=== PATIENT | male | born 1975 | race Hispanic/Latino ===

== ENCOUNTER 2024-03-03 12:05 | Emergency (ER) | payer OTHER ==
[~2024-03-03] VITALS: Ht 167.6 cm; Wt 74.8 kg
[2024-03-03 15:25] LABS: BASOPHILS # (AUTO) 0.03 K/uL (0.00-0.20); BASOPHILS % (AUTO) 0.4 % (0.0-5.0); EOSINOPHILS % (AUTO) 1.2 % (0.0-8.0); HEMATOCRIT 52.1 % (42-54); IMMATURE GRANULOCYTE ABSOLUTE 0.02 K/uL (0-1); LYMPHOCYTES # (AUTO) 2.4 K/uL (1.0-4.8); LYMPHOCYTES % (AUTO) 28.9 % (21.0-51.0); MEAN CORPUSCULAR HEMOGLOBIN 31.8 pg (27.0-33.0); MEAN CORPUSCULAR HGB CONC 34.9 g/dL (32.0-36.0); MEAN CORPUSCULAR VOLUME 91.1 fL (79-99); MONOCYTES # (AUTO) 0.7 K/uL (0.1-1.0); MONOCYTES % (AUTO) 7.7 % (3.0-13.0); NEUTROPHILS # (AUTO) 5.2 K/uL (1.8-7.7); NEUTROPHILS % (AUTO) 61.6 % (40.0-77.0); PLATELET COUNT (AUTO) 188 K/uL (130-400); RED BLOOD CELL COUNT(AUTO) 5.72 MIL/uL (4.50-6.20); RED CELL DISTRIBUTION WIDTH 11.6 % (11.0-15.5); WHITE BLOOD COUNT (AUTO) 8.4 K/uL (4.8-10.8)
--- NOTE | 2024-03-03 15:30 | NUR ---
LATE ENTRY RECEIVED REPORT FROM JESSICA AT [id number]
[2024-03-03 15:38] LABS: CARBON DIOXIDE 27 mmol/L (21-32); CHLORIDE 102 mmol/L (101-111); GLOMERULAR FILTR. RATE CALC 93 mL/min (>90); GLUCOSE,RANDOM 168 mg/dL (70-105); POTASSIUM 3.8 mmol/L (3.5-5.1); SODIUM SERUM 137 mmol/L (136-145); UREA NITROGEN, BLOOD 7 mg/dL (7-18)
[2024-03-03 15:43] LABS: ALCOHOL, BLOOD 4 mg/dL (0-10); CREATINE KINASE, TOTAL 69 U/L (21-232)
[2024-03-03 15:44] LABS: ACETAMINOPHEN < 1 mcg/mL (10-29); SALICYLATE < 2.8 mg/dL (2.8-20.0)
[2024-03-03 16:50] LABS: AMPHET/METH SCREEN,URINE NEGATIVE (NEGATIVE); BARBITURATE SCREEN, URINE NEGATIVE (NEGATIVE); BENZODIAZEPINES SCREEN,URINE NEGATIVE (NEGATIVE); CANNABINOID SCREEN,URINE NEGATIVE (NEGATIVE); COCAINE SCREEN,URINE NEGATIVE (NEGATIVE); OPIATE SCREEN,URINE NEGATIVE (NEGATIVE); PHENCYCLIDINE SCREEN,URINE NEGATIVE (NEGATIVE)
--- NOTE | 2024-03-03 17:22 | NUR ---
PT MEDICALLY CLEARED AND CALLED [facility] FOR PSYCHE EVALUATION, THEY WILL NOTIFY AND DISPATCH PSYCHE SCREENER.
--- NOTE | 2024-03-03 18:17 | NUR ---
PSYCHE SCREENER AT THE BEDSIDE
--- NOTE | 2024-03-03 19:09 | ERN ---
General Chief Complaint: Anxiety/Panic Attack Stated Complaint: HIGH BLOOD PRESSURE, AMS Time Seen by MD: 12:55 Time Seen by Midlevel: 12:55 Source: patient History of Present Illness Initial Comments Patient is a 40-year-old male with a past medical history of type 2 diabetes being brought in by [facility] to the emergency department for medical cleara wae. Patient was sent by [facility] for evaluation of hyperglycemia. He reports voicing that he wanted to stick his head in the toilet and killing himself. He voiced his to [facility] staff and our nursing staff. On arrival he denies any other symptoms. Does report taking metformin 500 mg twice a day but has not been able to take it since yesterday since he has been under custody. Allergies: Coded Allergies: No Known Drug Allergies (Unverified Allergy, Unknown, 03/03/24) Home Meds Active Scripts Metformin HCl (Metformin HCl) 500 Mg Tablet, 1 TAB PO BID for 10 Days, #20 TAB 0 Refills Prov:MELINDA RUEDA 03/03/24 Past Medical History Past Medical History: Diabetes-Type II Past Surgical History: None ROS Dictation CONSTITUTIONAL: Negative except for HPI HEAD/FACE: Negative except for HPI EENT: Negative except for HPI RESPIRATORY: Negative except for HPI GASTROINTESTINAL/ABDOMINAL: Negative except for HPI GENITOURINARY: Negative except for HPI MUSCULOSKELETAL: Negative except for HPI INTEGUMENTARY: Negative except for HPI NEUROLOGICAL/PSYCH: Negative except for HPI HEMATOLOGIC/LYMPHATIC: Negative except for HPI All Systems Negative, Except as noted above. 13 point review of systems assessed and all negative except for above. Physical Exam Physical Exam Dictation Vital Signs reviewed General Appearance: Alert, oriented x 3, no acute distress, well developed, nourished. Head and Face: non-traumatic. Eyes: PERRL, pink conjunctivas, eyelid no trauma, anterior chamber with arcus senilis. Ears: Pinnas intact and no signs of trauma or erythema ear canals clear and no discharge TM no erythema Nose: No discharge, no bleeding. Oropharynx: Mouth normal, tongue pink, pharynx clear,no erythema, tonsils no exudates, no abscesses noted, mucous membrane moist Neck: Supple, non-tender, no thyromegaly, no masses, no JVD, no bruits Breast:Deferred Chest:No tenderness, no crepitus, no paradoxical movement, no retractions Lungs:Clear, well-ventilated, symmetric, no rales, no wheezing, no rhonchi, no stridor, good breath sounds bilaterally Heart: Regular rate, regular rhythm, no murmur, no gallops Vascular: no peripheral edema, Abdomen: Soft, positive bowel sounds, nondistended, no guarding, nontender, no rebound, no masses no hepatomegaly, no splenomegaly, no Pack's sign, no hernias. Rectal: Deferred Genital: Deferred Neurological: Normal speech, motor function intact, sensory function intact Musculoskeletal: Neck nontender, full range of motion, back nontender, full range of motion, Extremities: nontender, full range of motion Skin: Color pink, dry, no turgor, no rash, no lacerations, no abrasions, no contusions. Lymphatic: Deferred Results Laboratory and Microbiology Lab and Micro Result Laboratory Tests Test 03/03/24 12:26 03/03/24 15:19 03/03/24 16:21 03/03/24 19:06 Whole Blood Glucose 260 MG/DL (70-110) H 178 MG/DL (70-110) H White Blood Count 8.4 K/uL (4.8-10.8) Red Blood Count 5.72 MIL/uL (4.50-6.20) Hemoglobin 18.2 g/dL (14.0-18.0) H Hematocrit 52.1 % (42-54) Mean Corpuscular Volume 91.1 fL (79-99) Mean Corpuscular Hemoglobin 31.8 pg (27.0-33.0) Mean Corpuscular Hemoglobin Concent 34.9 g/dL (32.0-36.0) Red Cell Distribution Width 11.6 % (11.0-15.5) Platelet Count 188 K/uL (130-400) Mean Platelet Volume 10.4 fL (7.5-10.5) Immature Granulocyte % (Auto) 0.2 % (0-1) Neutrophils (%) (Auto) 61.6 % (40.0-77.0) Lymphocytes (%) (Auto) 28.9 % (21.0-51.0) Monocytes (%) (Auto) 7.7 % (3.0-13.0) Eosinophils (%) (Auto) 1.2 % (0.0-8.0) Basophils (%) (Auto) 0.4 % (0.0-5.0) Neutrophils # (Auto) 5.2 K/uL (1.8-7.7) Lymphocytes # (Auto) 2.4 K/uL (1.0-4.8) Monocytes # (Auto) 0.7 K/uL (0.1-1.0) Eosinophils # (Auto) 0.10 K/uL (0.00-0.70) Basophils # (Auto) 0.03 K/uL (0.00-0.20) Absolute Immature Granulocyte (auto 0.02 K/uL (0-1) Nucleated Red Blood Cells 0.0 % (0.0-0.19) Sodium Level 137 mmol/L (136-145) Potassium Level 3.8 mmol/L (3.5-5.1) Chloride Level 102 mmol/L (101-111) Carbon Dioxide Level 27 mmol/L (21-32) Blood Urea Nitrogen 7 mg/dL (7-18) Creatinine 1.0 mg/dL (0.5-1.3) Glomerular Filtration Rate Calc 93 mL/min (>90) Random Glucose 168 mg/dL (70-105) H Total Calcium 9.3 mg/dL (8.5-10.1) Total Creatine Kinase 69 U/L (21-232) Salicylates Level < 2.8 mg/dL (2.8-20.0) L Acetaminophen Level < 1 mcg/mL (10-29) L Serum Alcohol 4 mg/dL (0-10) Urine Opiates Screen NEGATIVE (NEGATIVE) Urine Barbiturates Screen NEGATIVE (NEGATIVE) Urine Phencyclidine Screen NEGATIVE (NEGATIVE) Urine Amphetamines Screen NEGATIVE (NEGATIVE) Urine Benzodiazepines Screen NEGATIVE (NEGATIVE) Urine Cocaine Screen NEGATIVE (NEGATIVE) Urine Marijuana (THC) Screen NEGATIVE (NEGATIVE) Labs Reviewed?: Yes MDM MDM: Patient is a 40-year-old male with a past medical history of type 2 diabetes being brought in by [facility] to the emergency department for medical clearance. Patient was sent by [facility] for evaluation of hyperglycemia. He reports voicing that he wanted to stick his head in the toile t and killing himself. He voiced his to [facility] staff and our nursing staff. On arrival he denies any other symptoms. Does report taking metformin 500 mg twice a day but has not been able to take it since yesterday since he has been under custody. On physical examination patient is in no acute distress. Patient is alert and oriented x4. Initial vital signs are remarkable for a heart rate of 108, respiratory rate of 20, blood pressure of 155/95, pulse oximetry of 98% on room air. His CBC and chemistries unremarkable. His sugar is slightly elevated at 260 however repeat fingerstick was 168. His CK is normal. His urine drug screen is negative. Patient is not in DKA. Patient does have history of diabetes and is already being treated with metformin. Given that he did voice suicidal ideation the patient was screened by [facility] but does not meet criteria for inpatient psychiatric care. Patient will be cleared for incarceration. Differential diagnosis: DKA, uncontrolled diabetes, hyperglycemia, dehydration, suicidal ideation, psychiatric problem There are no social concerns with this patient. Prescription drug management Prescriptions will include: Metformin Medical management and examination interpretation discussions were had by me with other qualified healthcare professionals as indicated for the patient's care. ED Course Orders Procedure Category Date Status Time Drug Screen Urine LAB 03/03/24 Complete 14:49 Cbc With Differential LAB 03/03/24 Complete 14:49 Alcohol, Blood LAB 03/03/24 Complete 14:49 Salicylate LAB 03/03/24 Complete 14:49 Acetaminophen LAB 03/03/24 Complete 14:49 Creatine Kinase, Total LAB 03/03/24 Complete 14:49 Basic Metabolic Panel LAB 03/03/24 Complete 14:49 Bedside Glucose CPOE 03/03/24 Transmitted Fingerstick 18:59 Vital Signs Date Time Temp Pulse Resp B/P (MAP) Pulse Ox O2 Delivery O2 Flow Rate FiO2 03/03/24 19:36 98.4 80 18 150/95 98 Room Air* 0 21 03/03/24 16:30 90 18 152/92 97 Room Air* 0 21 03/03/24 12:25 98.2 108 20 155/95 98 Room Air 0 DX & DISP Disposition: Discharge Departure Impression: Primary Impression: Medical clearance for incarceration Additional Impressions: Hyperglycemia, Psychiatric problem Condition: Stable Scripts Metformin HCl (Metformin HCl) 500 Mg Tablet 1 TAB PO BID for 10 Days, #20 TAB 0 Refills Prov: MELINDA RUEDA 03/03/24 Referrals: SELF,REFERRAL (PCP) Time of Disposition: 19:09 I have reviewed the case, and I agree with, Diagnosis and Plan I performed the substantive portion of the visit. I have reviewed and pe rsonally made and approve the management plan that is documented in the note by myself or the BRANDIE. I acknowledge for responsibility for the patient's management plan. MELINDA RUEDA Mar 03, 2024 19:09
[2024-03-03] MEDS ORDERED: METF-444 PO (19:15)
[2024-03-03 19:36] VITALS: BP 150/95; PULSE 80; RESP 18; TEMP 98.4; O2SAT 98
== END 2024-03-03 19:37 ==
LOC: EDH 12:05 → EEVIPCON 12:05 → EDH 19:37
DX: E11.65 Type 2 diabetes mellitus with hyperglycemia (principal); F99 Mental disorder, not otherwise specified; Z02.89 Encounter for other administrative examinations; Z79.84 Long term (current) use of oral hypoglycemic drugs; Z79.899 Other long term (current) drug therapy
CPT/HCPCS: 99283; 82550; 80048; 80305; 85025; 82948 ×2; 36415; G0481